=== PATIENT | male | born 1960 | race Caucasian/White ===

== ENCOUNTER 2017-03-15 07:35 | Emergency (ER) | payer MEDICAID ==
[~2017-03-15] VITALS: Ht 182.9 cm; Wt 101.3 kg
[2017-03-15 07:37] VITALS: BP 156/108
[2017-03-15] MEDS ORDERED: LISI-170 PO (08:00)
== END 2017-03-15 08:25 | disposition home or self-care (01) ==
LOC: ED 08:20
DX: I10 Essential (primary) hypertension (principal)
CPT/HCPCS: 99283